=== PATIENT | male | born 1945 | race Caucasian/White ===

== ENCOUNTER → 2017-09-03 | Outpatient (CLI) | payer MEDICARE, OTHER ==
--- NOTE | 2017-09-03 16:15 | KCIC ---
EXAM: Chest, 2 views. HISTORY: Melanoma. Asthma. COMPARISON: 09/26/2016 FINDINGS: Frontal and lateral views of the chest are obtained. There is no infiltrate, effusion or pneumothorax. The heart is normal in size. There is benign-appearing sclerosis within the right humeral head. IMPRESSION: No acute pulmonary finding. Electronically signed by: Beronica Childress MD (09/03/2017 4:12 PM) [id number]
== END | disposition home or self-care (01) ==
LOC: KCIC 15:47
PROVIDERS: ATTEND Physician Assistant
DX: C43.9 Malignant melanoma of skin, unspecified (principal); J45.909 Unspecified asthma, uncomplicated; Z87.891 Personal history of nicotine dependence; Z85.820 Personal history of malignant melanoma of skin
CPT/HCPCS: 71020

== ENCOUNTER → 2018-12-08 | Outpatient (CLI) | payer MEDICARE, OTHER ==
--- NOTE | 2018-12-08 11:23 | KCIC ---
CT maxillofacial without contrast 12/08/2018 CLINICAL INDICATION: Chronic sinusitis. COMPARISON: None. TECHNIQUE: Multiple CT images of the maxillofacial were obtained without contrast. *One or more of the following individualized dose reduction techniques were utilized for this examination: 1. Automated exposure control. 2. Adjustment of the mA and/or kV according to patient size. 3. Use of iterative reconstruction technique. FINDINGS: There is complete opacification of the frontal, ethmoid, right sphenoid and left maxillary sinuses with adjacent sinus wall thickening. There is bilateral maxillary sinus volume loss. Postsurgical changes of partial ethmoidectomy, bilateral antrectomies and uncinectomies and bilateral turbinectomies. There is high density most prominent in the ethmoid air cells, anterior right sphenoid sinus and left maxillary sinus. There is dehiscence of the medial wall at the frontonasal duct with lateral bulging of hypodensity into the medial extraconal space series 2/image 92, series 602/image 45. There is near complete opacification of the left sphenoid sinus with aerated secretions. There is a tiny right maxillary sinus osteoma projecting from the anterior wall. The retromaxillary fat is preserved. IMPRESSION: 1. Paranasal sinus surgery, as detailed. 2. Dehiscence of the lateral wall of the frontonasal duct with minimal hypodensity extending to the medial extraconal space without evidence of subperiosteal abscess. 3. Extensive paranasal sinus opacification, consistent with chronic pansinusitis. 4. Acute appearing left sphenoid sinusitis. Electronically signed by: Brian Henderson MD (12/08/2018 11:18 AM) [facility]
== END | disposition home or self-care (01) ==
LOC: KCIC CT 10:21
PROVIDERS: ATTEND Otolaryngology
DX: J32.9 Chronic sinusitis, unspecified (principal)
CPT/HCPCS: 70486

== ENCOUNTER → 2020-12-15 | Outpatient (CLI) | payer MEDICARE ==
--- NOTE | 2020-12-15 15:45 | KCIC ---
PA and lateral chest x-ray compared to similar exam dated September 03, 2017 for malignant melanoma. FINDINGS: Changes COPD. No definite lung nodules or masses are seen. No definite infiltrates. No pleu ral effusions or pneumothorax. Heart size within normal limits. IMPRESSION: 1. Emphysema with no radiographic evidence of pulmonary metastatic disease. Electronically signed by: Bradly Calix MD (12/15/2020 3:43 PM) [id number]
== END ==
LOC: KCIC 15:30
PROVIDERS: ATTEND Physician Assistant
DX: J43.9 Emphysema, unspecified (principal); Z85.820 Personal history of malignant melanoma of skin
CPT/HCPCS: 71046